=== PATIENT | male | born 1990 | race Caucasian/White ===

== ENCOUNTER 2017-09-23 02:38 | Emergency (ER) | payer OTHER ==
[2017-09-23] MEDS ORDERED: Sodium Chloride 0.9% 10 ML Syringe FLUSH PRN (02:56)
[2017-09-23] MEDS ORDERED: Ondansetron 4 MG/2 ML SDV IVPUSH ONE (02:56)
[2017-09-23] MEDS ORDERED: Famotidine 20 MG/2 ML SDV IVPUSH ONE (02:57)
--- NOTE | 2017-09-23 03:06 | EDM.PDOC ---
ED HPI GENERAL MEDICAL PROBLEM - General Chief Complaint: Chest Pain Stated Complaint: CHEST PAIN Time Seen by Provider: 09/23/17 02:51 Source of Information: Reports: Patient History Limitations: Reports: No Limitations - History of Present Illness INITIAL COMMENTS - FREE TEXT/NARRATIVE: The patient presents with chest pain. He says this started last night and it was sever. It was mid chest. He had nausea and vomiting with it. It happened again tonight. He has no shortness of breath. He has no fever, cough, congestion or runny nose. He has no abdominal pain. He did have chills yesterday. He does smoke but he has no other risk factors. Onset: Gradual Duration: Day(s): (Yesterday) Location: Reports: Chest Quality: Reports: Sharp Severity: Moderate Improves with: Reports: None Worsens with: Reports: None Context: Reports: Activity (He was sleeping when this started) Associated Symptoms: Reports: Chest Pain, Nausea/Vomiting. Denies: Shortness of Breath Middle Chest Pain Score (Numeric/FACES): 5 - Related Data Allergies Allergy/AdvReac Type Severity Reaction Status Date / Time No Known Allergies Allergy Verified 09/23/17 02:46 Home Meds: Home Meds . [No Known Home Meds] 09/23/17 [History] Past Medical History - Past Health History Medical/Surgical History: Denies Medical/Surgical History Social & Family History - Tobacco Use Smoking Status *Q: Current Every Day Smoker Years of Tobacco use: 5 Packs/Tins Daily: 0.5 - Recreational Drug Use Recreational Drug Use: No ED ROS GENERAL - Review of Systems Review Of Systems: See Below Constitutional: Reports: Chills HEENT: Reports: No Symptoms Respiratory: Reports: No Symptoms Cardiovascular: Reports: Chest Pain Endocrine: Reports: No Symptoms GI/Abdominal: Reports: Nausea, Vomiting. Denies: Abdominal Pain : Reports: No Symptoms Musculoskeletal: Reports: No Symptoms ED EXAM, GENERAL - Physical Exam Exam: See Below Exam Limited By: No Limitations General Appearance: Alert, No Apparent Distress Ears: Normal External Exam Nose: Normal Inspection Head: Atraumatic, Normocephalic Neck: Normal Inspection Respiratory/Chest: No Respiratory Distress, Lungs Clear, Normal Breath Sounds Cardiovascular: Regular Rate, Rhythm, No Edema, No Murmur GI/Abdominal: Soft, Non-Tender, No Organomegaly, No Mass Back Exam: Normal Inspection Extremities: Normal Inspection EKG INTERPRETATION EKG Date: 09/23/17 Time: 02:47 Rhythm: NSR Rate (Beats/Min): 71 [place]: Normal P-Wave: Present QRS: Normal ST-T: Normal QT: Normal EKG Interpretation Comments: Q waves in the anterior leads Course - Vital Signs Last Recorded V/S: Last Vital Signs Temp 98.3 F 09/23/17 02:44 Pulse 65 09/23/17 02:44 Resp 16 09/23/17 02:44 BP 132/91 H 09/23/17 02:44 Pulse Ox 100 09/23/17 02:44 - Orders/Labs/Meds Orders: Active Orders 24 hr Category Date Time Status Cardiac Monitoring [RC] . DIRECTED Care 09/23/17 02:56 Active EKG Documentation Completion [RC] ASDIRECTED Care 09/23/17 02:49 Active Peripheral IV Care [RC] . DIRECTED Care 09/23/17 02:57 Active Chest 2V [CR] Stat Exams 09/23/17 02:57 Taken CBC WITH AUTO DIFF [HEME] Stat Lab 09/23/17 02:56 Ordered COMPREHENSIVE METABOLIC PN,CMP [CHEM] Stat Lab 09/23/17 02:56 Ordered TROPONIN I [CHEM] Stat Lab 09/23/17 02:56 Ordered Sodium Chloride 0.9% [Saline Flush] Med 09/23/17 02:56 Active 10 ml FLUSH ASDIRECTED PRN ED Antiemetic Medication Reflex [OM.PC] Stat Oth 09/23/17 02:56 Ordered Peripheral IV Insertion Adult [OM.PC] Stat Oth 09/23/17 02:56 Ordered EKG 12 Lead [EK] Stat Ther 09/23/17 02:49 Ordered Medication Orders Sodium Chloride (Saline Flush) 10 ml FLUSH ASDIRECTED PRN PRN Reason: Keep Vein Open Meds: Medications Generic Name Dose Route Start Last Admin Trade Name Freq PRN Reason Stop Dose Admin Sodium Chloride 10 ml 09/23/17 02:56 Saline Flush FLUSH ASDIRECTED PRN Keep Vein Open Discontinued Medications Generic Name Dose Route Start Last Admin Trade Name Freq PRN Reason Stop Dose Admin Famotidine 20 mg 09/23/17 02:57 Pepcid IVPUSH 09/23/17 02:58 ONETIME ONE Famotidine 20 mg 09/23/17 03:12 09/23/17 03:16 Pepcid PO 09/23/17 03:13 20 mg ONETIME ONE Administration Ondansetron HCl 4 mg 09/23/17 02:56 Zofran IVPUSH 09/23/17 02:57 ONETIME ONE - Re-Assessments/Exams Free Text/Narrative Re-Assessment/Exam: 09/23/17 03:02 I ordered an IV saline lock, EKG, labs, CXR, and pepcid 20mg IV. 09/23/17 03:03 I also ordered some zofran 4mg IV. 09/23/17 03:27 His CXR looks good. He did not want any needles. He has some reflux. I will discharge him home and cancel the labs. 09/23/17 03:29 I will have him take some pepcid for a few days. Departure - Departure Time of Disposition: 03:30 Disposition: Home, Self-Care 01 Condition: Good Clinical Impression: Chest pain Qualifiers: Chest pain type: unspecified Qualified Code(s): R07.9 - Chest pain, unspecified GERD (gastroesophageal reflux disease) Qualifiers: Esophagitis presence: with esophagitis Qualified Code(s): K21.0 - Gastro- esophageal reflux disease with esophagitis Referrals: Diana Rodríguez [Physician] - 1 Week Forms: ED Department Discharge Additional Instructions: Take pepcid daily for 1 week. Avoid eating late or large amounts before bed and also avoid spicy foods. Please return if you are worse and follow up with Dr Rodríguez if you are not better in 1 week. - My Orders Last 24 Hours: My Active Orders 09/23/17 02:49 EKG Documentation Completion [RC] ASDIRECTED EKG 12 Lead [EK] Stat 09/23/17 02:56 Cardiac Monitoring [RC] . DIRECTED CBC WITH AUTO DIFF [HEME] Stat COMPREHENSIVE METABOLIC PN,CMP [CHEM] Stat TROPONIN I [CHEM] Stat Sodium Chloride 0.9% [Saline Flush] 10 ml FLUSH ASDIRECTED PRN ED Antiemetic Medication Reflex [OM.PC] Stat Peripheral IV Insertion Adult [OM.PC] Stat 09/23/17 02:57 Peripheral IV Care [RC] . DIRECTED Chest 2V [CR] Stat - Assessment/Plan Last 24 Hours: My Active Orders 09/23/17 02:49 EKG Documentation Completion [RC] ASDIRECTED EKG 12 Lead [EK] Stat 09/23/17 02:56 Cardiac Monitoring [RC] . DIRECTED CBC WITH AUTO DIFF [HEME] Stat COMPREHENSIVE METABOLIC PN,CMP [CHEM] Stat TROPONIN I [CHEM] Stat Sodium Chloride 0.9% [Saline Flush] 10 ml FLUSH ASDIRECTED PRN ED Antiemetic Medication Reflex [OM.PC] Stat Peripheral IV Insertion Adult [OM.PC] Stat 09/23/17 02:57 Peripheral IV Care [RC] . DIRECTED Chest 2V [CR] Stat
[2017-09-23] MEDS ORDERED: Famotidine 20 MG Tab PO ONE (03:12)
--- NOTE | 2017-09-23 07:10 | CR ---
Chest: Two views of the chest were obtained. Comparison: No prior chest x-ray. Heart size and mediastinum are normal. Lungs are clear. Bony structures are unremarkable. Impression: 1. Nothing acute is identified on two-view chest x-ray. Diagnostic code #1
== END 2017-09-23 03:35 ==
LOC: MERGE 02:38 → JD.ED 02:38
DX: K21.0 Gastro-esophageal reflux disease with esophagitis (principal); F17.210 Nicotine dependence, cigarettes, uncomplicated
CPT/HCPCS: 71020; 93005; 99285; A9270

== ENCOUNTER 2018-04-01 13:14 | Emergency (ER) | payer OTHER ==
--- NOTE | 2018-04-01 13:58 | EDM.PDOC ---
ED HPI GENERAL MEDICAL PROBLEM - General Chief Complaint: Headache Stated Complaint: HEADACHE Time Seen by Provider: 04/01/18 13:35 Source of Information: Reports: Patient, Provider History Limitations: Reports: No Limitations - History of Present Illness INITIAL COMMENTS - FREE TEXT/NARRATIVE: The patient was sent from [facility]. He has been having a headache for about 8 days. He also has chills. He has some edema around both eyes with some redness. He has congestion and runny nose. He has no blurred vision or double vision. He has no numbness or weakness. He has no cough, chest pain or shortness of breath. The provider at [facility] was worried he may have an orbital cellulitis or abscess and wanted a CT. Onset: Gradual Duration: Day(s): (8) Location: Reports: Face Quality: Reports: Pressure Severity: Moderate Improves with: Reports: None Worsens with: Reports: None Associated Symptoms: Reports: No Other Symptoms Headache Pain Score (Numeric/FACES): 3 - Related Data Allergies Allergy/AdvReac Type Severity Reaction Status Date / Time No Known Allergies Allergy Verified 04/01/18 13:35 Home Meds: Home Meds Amoxicillin 1,000 mg PO BID #40 tab 04/01/18 [Rx] Past Medical History - Past Health History Medical/Surgical History: Denies Medical/Surgical History - Past Surgical History Male Surgical History: Reports: Ureteral Stent Social & Family History - Family History Family Medical History: Noncontributory - Tobacco Use Smoking Status *Q: Current Every Day Smoker Years of Tobacco use: 6 Packs/Tins Daily: 0.2 - Recreational Drug Use Recreational Drug Use: No ED ROS GENERAL - Review of Systems Review Of Systems: See Below Constitutional: Reports: Chills. Denies: Fever HEENT: Reports: Other (Congestion and sinus pressure) Respiratory: Reports: No Symptoms Cardiovascular: Reports: No Symptoms Endocrine: Reports: No Symptoms GI/Abdominal: Reports: No Symptoms : Reports: No Symptoms Musculoskeletal: Reports: No Symptoms - Physical Exam Exam: See Below Exam Limited By: No Limitations General Appearance: Alert, No Apparent Distress Eye Exam: Bilateral Eye: EOMI, Other (Mild lid edema on the right. No erythema. ) Ears: Normal External Exam Nose: Normal Inspection Head Exam: Atraumatic, Normocephalic Neck: Normal Inspection Respiratory/Chest: No Respiratory Distress, Lungs Clear, Normal Breath Sounds Cardiovascular: Regular Rate, Rhythm, No Edema, No Murmur GI/Abdominal: Soft, Non-Tender, No Organomegaly, No Mass Neuro Exam (Abbreviated): Alert, Oriented, No Motor/Sensory Deficits Extremities: Normal Inspection Course - Vital Signs Last Recorded V/S: Last Vital Signs Temp 98.8 F 04/01/18 13:30 Pulse 101 H 04/01/18 13:30 Resp 16 04/01/18 13:30 BP 103/80 04/01/18 13:30 Pulse Ox 100 04/01/18 13:30 - Re-Assessments/Exams Free Text/Narrative Re-Assessment/Exam: 04/01/18 14:00 I am not concerned that he has periorbital or orbital cellulitis/abscess. I do think he has sinusitis. Departure - Departure Time of Disposition: 14:00 Disposition: Home, Self-Care 01 Condition: Good Clinical Impression: Headache Qualifiers: Headache type: unspecified Headache chronicity pattern: acute headache Intractability: not intractable Qualified Code(s): R51 - Headache Sinusitis Qualifiers: Sinusitis location: frontal Chronicity: acute Recurrence: non-recurrent Qualified Code(s): J01.10 - Acute frontal sinusitis, unspecified - Discharge Information Prescriptions: Amoxicillin 1,000 mg PO BID #40 tab Referrals: PCP,None [Primary Care Provider] - Diana Rodríguez [Physician] - 1 Week Additional Instructions: Take the amoxicillin 2 pills 2 times per day for 10 days. Drink plenty of fluids. You can try some neti pots or pseudaphed. Please return if you are worse.
== END 2018-04-01 14:29 | disposition home or self-care (01) ==
LOC: JD.ED 13:14
DX: J01.10 Acute frontal sinusitis, unspecified (principal); F17.210 Nicotine dependence, cigarettes, uncomplicated
CPT/HCPCS: 99283